=== PATIENT | female | born 1985 | race Caucasian/White ===

== ENCOUNTER 2019-02-18 11:42 | Emergency (ER) | payer OTHER ==
--- NOTE | 2019-02-18 12:45 | EDPHY ---
General - History Smoking Status: Never smoked Time Seen by Provider: 02/18/19 12:44 Narrative: CLINICAL IMPRESSION: Nausea, vomiting and abdominal cramping in first-trimester ASSESSMENT/PLAN: Patient is a 33-year-old female who is approximately 12 weeks , presents to the emergency department with nausea, vomiting, decreased oral intake and lower abdominal cramping. Patient is afebrile and nontoxic-appearing , no acute distress. Her abdomen is obese, soft, I am unable to elicit any tenderness to palpation. CBC revealed leukocytosis which is likely secondary to her . BMP, lipase and hepatic panel were all grossly normal. Pelvic US reveals single live intrauterine with average age of 13 weeks 6 days, heart rate of 158. There is no evidence of subchorionic hemorrhage, ovarian torsion, ectopic , PID or acute surgical abdomen. She had no urinary symptoms to suggest urinary tract infection, was unable to give a specimen in the emergency department. Hcg quant 52,000. She is known to be B- blood type however she has had no vaginal bleeding to warrant RhoGAM. Patient with a reassuring work-up, no evidence of significant dehydration, hyperemesis gravidarum or gastritis; she had no abdominal pain to suggest appendicitis, perforation or obstruction. She was able to tolerate po without difficulty. Patient is well established with her OBGYN doctor head in [place] , she will call tomorrow 1st thing to schedule follow-up. She already has a prescription for antiemetic and will use as directed per OB. Return precautions discussed. DIFFERENTIAL DX: Nausea and vomiting including but not limited to hyperemesis gravidarum, gastroenteritis, gastritis, appendicitis, and medication side effect. ED COURSE: 1355: Case discussed with Dr. Tate. Patient with a live intrauterine , heart rate 156. No acute or abnormal findings. CHIEF COMPLAINT: Nausea, vomiting and abdominal cramping HPI: Patient is 33-year-old female who is approximately 12 weeks , presents to the emergency department with nausea, vomiting, decreased oral in take and lower abdominal cramping. Patient is followed by Dr. Mcdonald with [facility] [place], has had formal OBGYN evaluation with laboratory studies and ultrasound. Patient has been struggling with intermittent nausea and vomiting throughout this , has been prescribed anti-emetic however did not take any. She was worried as she has not been able to keep anything down since yesterday. She endorses 2 episodes of lower abdominal cramping that occurred yesterday. She denies any abdominal pain today. She has had no vaginal bleeding. She denies any fever, chills, chest pain or shortness of breath. She denies any urinary symptoms to include dysuria, hematuria or increased frequency. BM are normal and regular. PMH: Denies Pertinent Past Surgical History: Family History: Not contributory Social History: Denies cigarette smoking, alcohol or illicit drug use REVIEW OF SYSTEMS: All other systems negative Constitutional: Decreased appetite. No fever, no chills. Eyes: No discharge, vision change ENT: No sore throat, congestion, ear pain. Cardiovascular: No chest pain, no palpitations. Respiratory: No cough, no shortness of breath. Gastrointestinal: Abdominal cramping, nausea and vomiting. Genitourinary: No hematuria, dysuria, flank pain. Musculoskeletal: No back pain, joint swelling, joint pain, myalgias. Skin: No rashes, color change. Neurological: No headache, dizziness, weakness. PHYSICAL EXAM: General Appearance: Well-appearing, no acute distress and not toxic-appearing. HENT: Normocephalic, atraumatic. Bilateral external ears are normal. Bilateral tympanic membranes are normal with pearly pinto reflex. Nares are clear, mucosa is pink. Oropharynx is clear, mucosa is moist, uvula is midline. There is no tonsillar enlargement or exudate. Eyes: PERRLA, EOMI. Conjunctiva pink, no pallor or injection. Neck: Supple, nontender, no lymphadenopathy, no midline pain, FROM, no meningismus. Respiratory: There are no retractions, lungs are clear to auscultation. Cardiac: Regular rate and rhythm, no murmurs or gallops. Gastrointestinal: Abdomen is soft and mildly obese, bowel sounds normal, no masses/hernia, no rigidity, guarding or focal peritoneal findings. I am unable to elicit any tenderness to palpation. Neurological: Alert and oriented x 3, CN 2-12 grossly intact, normal sensation and strength. Skin: Warm, dry, no rashes, no nodules on palpation. Musculoskeletal: Extremities are symmetrical, full range of motion, no tenderness, deformity, swelling, or erythema. Psychiatric: Mood and affect are normal, there is no agitation. MEDICAL DECISION MAKING: Patient was seen independently. Secondary supervising physician at time of evaluation was Dr. Bell, she did not evaluate this patient. Diagnosis: Nausea and vomiting in first-trimester . Summary: See Assessment and Plan for summary of ED visit Clinical lab tests: ordered / reviewed. Independent visualization of images, tracing, or specimens: Yes. Decision to obtain medical records or history from someone other than the patient: No Review / Summarize previous medical records: Yes Discussed patient with another provider: Yes, Dr. Bell Patient Progress: Stable, discharge. (Amy Hudson) The patient was evaluated and managed by the physician recruitment and outreach assistant. I have reviewed this chart and I agree with the findings and plan of care as documented , as indicated by my signature. I am the secondary supervising physician. ( Samantha Bell) - Objective Vital Signs: Initial Vital Signs Temperature (C) 36.7 C 02/18/19 11:45 Heart Rate 88 02/18/19 11:45 Respiratory Rate 16 02/18/19 11:45 Blood Pressure 125/78 H 02/18/19 11:45 O2 Sat (%) 97 02/18/19 11:45 O2 Delivery Mode Room Air Allergies/Adverse Reactions: No Known Allergies Allergy (Unverified 02/18/19 11:45) Home Medications: Medication Instructions Recorded Dha 02/18/19 Laboratory Results: Laboratory Results 02/18/19 12:12 02/18/19 12:12 Medications Given: Discontinued Medications Ondansetron HCl (Zofran) 4 mg IVP EDNOW ONE Stop: 02/18/19 12:56 Last Admin: 02/18/19 13:10 Dose: Not Given Departure - Departure Disposition: Home, Routine, Self-Care Clinical Impression: Nausea and vomiting during Condition: Good Instructions: Nausea and Vomiting in (ED) Additional Instructions: DISCHARGE INSTRUCTIONS FROM YOUR PROVIDER Thank you for visiting our emergency department today. Please keep in mind that discharge from the emergency department does not mean that there is nothing wrong - it simply means that we have not identified an emergency condition that requires further evaluation or treatment in the hospital. Please call to schedule a follow-up with your OBGYN in the next several days. Rest, push non-diuretic, non-caffeinated fluids, clear liquid diet, then a BRAT diet (bananas, rice, applesauce, toast), then slowly advance diet to normal. Attempt small frequent meals. It is very important that you stay hydrated. Please use your prescribed anti nausea medication that was given to you by your OBGYN as needed. Return for development of abdominal pain, persistent nausea and vomiting, signs of dehydration, decreased urinary output, vaginal bleeding or for any other concerning symptom. People present with illnesses and injuries in different ways, and it is always possible that we have missed something. Again, thank you for choosing our emergency department. We hope that you feel better. Referrals: NONE *PRIMARY CARE P,. [Primary Care Provider] - 1-2 days without fail (Please call to schedule an appointment with your OBGYN doctor head.)
[2019-02-18] MEDS ORDERED: ONDANSETRON 4 MG/2 ML VIAL IVP ONE (12:55)
[2019-02-18 13:01] LABS: PLATELET COUNT 235 10^3/uL (150-400)
[2019-02-18 14:42] VITALS: BP 115/72
== END 2019-02-18 15:02 | disposition home or self-care (01) ==
DX: R11.2 Nausea with vomiting, unspecified (principal); R10.30 Lower abdominal pain, unspecified; Z3A.12 12 weeks gestation of pregnancy